=== PATIENT | male | born 1980 | race Two or more races ===

== ENCOUNTER 2020-04-19 11:50 | Emergency (ER) | payer OTHER ==
[~2020-04-19] VITALS: Ht 157.5 cm; Wt 64.0 kg
[2020-04-19] MEDS ORDERED: TETanus/Pertussis (Acell)/Diphther VAC/PF (Tdap-Adult) 0.5ml syringe IMVAC ONE (12:05)
[2020-04-19] MEDS ORDERED: bacitracin 15gm ointment TP ONE (12:05)
[2020-04-19] MEDS ORDERED: LIDOcaine 1% W/epiNEPHrine 1:200,000 10ml vial IJ ONE (12:05)
[2020-04-19 13:46] VITALS: BP 127/56
== END 2020-04-19 13:54 | disposition home or self-care (01) ==
LOC: ER 11:53
DX: S61.512A Laceration without foreign body of left wrist, initial encounter (principal); W31.9XXA Contact with unspecified machinery, initial encounter; Y93.89 Activity, other specified; Y92.89 Other specified places as the place of occurrence of the external cause; Y99.8 Other external cause status
CPT/HCPCS: 12001; 90471; 90715; 99283

== ENCOUNTER 2020-04-29 09:06 | Emergency (ER) | payer OTHER ==
[~2020-04-29] VITALS: Ht 160 cm; Wt 61.0 kg
[2020-04-29 09:09] VITALS: BP 123/83
== END 2020-04-29 09:45 | disposition home or self-care (01) ==
LOC: ER 09:07
DX: S61.512D Laceration without foreign body of left wrist, subsequent encounter (principal); Z48.02 Encounter for removal of sutures; X58.XXXD Exposure to other specified factors, subsequent encounter; Y93.89 Activity, other specified; Y92.89 Other specified places as the place of occurrence of the external cause; Y99.8 Other external cause status
CPT/HCPCS: 99281